=== PATIENT | female | born 1965 | race Caucasian/White ===

== ENCOUNTER → 2016-12-13 | Outpatient (CLI) | payer OTHER ==
[2016-12-13 15:00] LABS: BASOPHILS # (AUTO) 0.03 10*3/UL; BASOPHILS % (AUTO) 0.4 % (0-1); EOSINOPHILS # (AUTO) 0.37 10*3/UL; EOSINOPHILS % (AUTO) 4.9 % (0-8); HEMATOCRIT 25.9 % (37.0-47.0); LYMPHOCYTES # (AUTO) 1.73 10*3/uL; MEAN CORPUSCULAR HEMOGLOBIN 17.2 PG (27-31); MEAN CORPUSCULAR HGB CONC 25.9 g/dL (33-37); MEAN CORPUSCULAR VOLUME 66.6 FL (81-99); MEAN PLATELET VOLUME 8.7 FL (7.4-12.2); MONOCYTES # (AUTO) 0.75 10*3/UL (0.3-0.8); MONOCYTES % (AUTO) 9.9 % (5-15); NEUTROPHILS # (AUTO) 4.64 10*3/UL; NEUTROPHILS % (AUTO) 61.5 % (50-80); RED BLOOD COUNT 3.89 10^6/uL (4.20-5.40)
[2016-12-13 15:34] LABS: HEMOGLOBIN 6.7 g/dL (12.0-16.0)
[2016-12-13 15:59] LABS: PLATELET MORPHOLOGY COMMENT NORMAL MORPHOLOGY (NORM); RBC MORPHOLOGY COMMENT SEE COMMENTS (NORM); WBC MORPHOLOGY COMMENT NORMAL MORPHOLOGY (NORM)
== END ==
LOC: LAB 14:17
PROVIDERS: ATTEND Nurse Practitioner Family
DX: D50.9 Iron deficiency anemia, unspecified (principal)
CPT/HCPCS: 36415; 83540; 83550; 85025